=== PATIENT | female | born 1985 | race African-American/Black ===

== ENCOUNTER 2021-02-14 01:50 | Emergency (ER) | payer OTHER ==
[~2021-02-14] VITALS: Ht 165.1 cm; Wt 54.0 kg
[2021-02-14] MEDS ORDERED: KETOROLAC 60MG/2ML VIAL IM ONE (03:45)
[2021-02-14 06:59] VITALS: BP 112/67
[2021-02-14] MEDS ORDERED: IBUP-2028 PO (07:01)
[2021-02-14] MEDS ORDERED: T3 PO (07:01)
== END 2021-02-14 07:36 | disposition home or self-care (01) ==
LOC: ER 01:50
DX: S79.812A Other specified injuries of left hip, initial encounter (principal); W01.0XXA Fall on same level from slipping, tripping and stumbling without subsequent striking against object, initial encounter; Y93.89 Activity, other specified; Y92.018 Other place in single-family (private) house as the place of occurrence of the external cause
CPT/HCPCS: 72192; 73502; 96372; 99284; J1885

== ENCOUNTER 2023-12-30 22:16 | Emergency (ER) | payer OTHER, MEDICAID ==
[~2023-12-30] VITALS: Ht 165.1 cm; Wt 54.0 kg
[~2023-12-30 22:16] MED LIST: IBUP-2028 PO; T3 PO
[2023-12-30 22:25] VITALS: O2SAT 98
[2023-12-31 01:24] VITALS: BP 137/80
[2023-12-31] MEDS: KETOROLAC 60MG/2ML VIAL IM ONE (01:24)
[2023-12-31] MEDS ORDERED: NAPR220C61 MT (01:42)
[2023-12-31 02:47] VITALS: PULSE 74; RESP 12; TEMP 97.7
== END 2023-12-31 02:20 | disposition home or self-care (01) ==
LOC: ER 22:34
DX: M79.602 Pain in left arm (principal); M79.89 Other specified soft tissue disorders; F41.9 Anxiety disorder, unspecified
CPT/HCPCS: 81025; 99285; 93971; 73090; 96372; J1885; Z7610